=== PATIENT | female | born 1965 | race Two or more races ===

== ENCOUNTER 2025-01-31 03:34 | Emergency (ER) | payer OTHER, MEDICAID ==
[~2025-01-31] VITALS: Ht 175.3 cm; Wt 104.0 kg
[2025-01-31 03:47] VITALS: PULSE 79; RESP 16; O2SAT 97
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
[2025-01-31 05:29] LABS: Hematocrit 44.3 % (36.0-46.0); Hemoglobin 15.0 g/dL (12.2-16.2); Mean Corpuscular Hemoglobin 29.8 pg (28.0-32.0); Mean Corpuscular Volume 87.7 fL (80.0-100.0); Nucleated Red Blood Cells % 0.1 %
[2025-01-31 05:33] LABS: Urine Protein, UAD Negative (Negative)
[2025-01-31 05:37] VITALS: PULSE 69; RESP 18; O2SAT 96
[2025-01-31 05:42] LABS: Alanine Aminotransferase 29 U/L (7-40); Albumin 4.7 g/dL (3.2-4.8); Alkaline Phosphatase 95 U/L (46-116); Anion Gap 10 (5-15); BUN/Creatinine Ratio 18.4 (10.0-20.0); Blood Urea Nitrogen 16 mg/dL (9-23); Calcium 9.7 mg/dL (8.7-10.4); Carbon Dioxide 25 mmol/L (20-31); Chloride 106 mmol/L (98-107); Glucose 100 mg/dL (74-106); Potassium 4.7 mmol/L (3.5-5.1); Sodium 141 mmol/L (136-145); Total Protein 7.7 g/dL (5.7-8.2)
[2025-01-31 05:43] LABS: Bilirubin, Total 0.3 mg/dL (0.2-1.0)
[2025-01-31] MEDS: ACETAMINOPHEN 325 MG TAB PO ONE (05:44)
[2025-01-31] MEDS: LABETALOL HCL 20 MG/4 ML VL IV ONE ×2 (05:45→06:39)
--- NOTE | 2025-01-31 05:46 | ECG ---
[facility] Test Date: 2025-01-31 Test Time: 05:41:37 Pat Name: NITA YOUNG Department: [facility] ED Patient ID: [facility]-[id number] Room: Gender: F Qa Automation Engineer: rosana : 1965 Requested By: BETHANIE BROWN Order Number: [id number] Reading MD: Cory Gooden Measurements Intervals [place] Rate: 66 P: 23 OK: 148 QRS: 17 QRSD: 108 T: 55 QT: 404 QTc: 424 Interpretive Statements Sinus rhythm Low voltage, precordial leads Abnormal R-wave progression, early transition Minimal ST elevation, inferior leads Electronically Signed On 02-04-2025 20:28:14 PDT by Cory Gooden Please click the below link to view image of tracing.
[2025-01-31 07:00] VITALS: BP 142/76; PULSE 65; RESP 18; TEMP 98.3
[2025-01-31 07:21] VITALS: O2SAT 96
== END 2025-01-31 07:30 | disposition home or self-care (01) ==
LOC: ER 03:34 → EDBD 03:34 → ER 07:30
DX: S00.83XA Contusion of other part of head, initial encounter (principal); I16.9 Hypertensive crisis, unspecified; Z79.899 Other long term (current) drug therapy; Z88.5 Allergy status to narcotic agent; V43.52XA Car driver injured in collision with other type car in traffic accident, initial encounter; Y93.89 Activity, other specified; Y92.410 Unspecified street and highway as the place of occurrence of the external cause; Y99.8 Other external cause status
CPT/HCPCS: 36415; 70450; 70486; 71045; 80053; 81001; 84484; 85025; 93005; 96374; 96376